=== PATIENT | female | born 1950 | race Caucasian/White ===

== ENCOUNTER → 2024-02-25 | Day surgery (SDC) | payer MEDICARE ==
[2024-02-17 10:48] LABS: BASOPHILS % 0.5 % (0.0-1.0); EOSINOPHILS # (AUTO) 0.4 (0.0-0.4); EOSINOPHILS % 5.2 % (0.0-6.0); HEMATOCRIT 42.6 % (34.2-44.1); HEMOGLOBIN 13.6 g/dL (12.0-16.0); LYMPHOCYTES # (AUTO) 1.6 (1.0-3.2); LYMPHOCYTES % 20.3 % (18.0-39.1); MEAN CORPUSCULAR HEMOGLOBIN 27.4 pg (28-32); MEAN CORPUSCULAR HGB CONC 31.9 g/dL (31-35); MEAN CORPUSCULAR VOLUME 85.9 fL (81-99); MONOCYTES # (AUTO) 0.8 (0.2-0.8); MONOCYTES % 9.4 % (4.4-11.3); NEUTROPHILS # (AUTO) 5.2 (2.1-6.9); NEUTROPHILS % 64.4 % (38.7-80.0); PLATELET COUNT 178 x10e3/uL (140-360); RED BLOOD COUNT 4.96 x10e6/uL (3.6-5.1); RED CELL DISTRIBUTION WIDTH 13.5 % (11.7-14.4); WHITE BLOOD COUNT 8.08 x10e3/uL (4.8-10.8)
[2024-02-17 11:26] LABS: ANION GAP 15.9 mmol/L (8-16); CREATININE, SERUM 0.88 mg/dL (0.57-1.11); POTASSIUM 3.9 mmol/L (3.5-5.1)
[~2024-02-25] MED LIST: ALLEGRA-D 24 H1 EACH PO; ATORVASTATIN CA10 MG PO; BALANCED SALT SOLN (OPTH) 15 ML BTL IO ONE; BUPIVACAINE HC 0.75% PF 10ML VIAL INJ ONE; CALCIUM PO; EPINEPHRINE HCL 1:1000 1ML 1 MG/ML AMP ONE; FIBER GUMMY PO; FLONASE ALLERG9.9 ML INH; LIDOCAINE 2% /EPINEPHRINE 20 ML SDV INJ ONE; LIDOCAINE HCL-PF 4% 40 MG/1 ML 5ML AMP ONE; LISINOPRIL-HCT1 EAC1 PO; MIDAZOLAM HCL 2 MG/2 ML VIAL ONE; MONTELUKAST SOD10 MG PO; MOUNJARO2.5 MG/0.5 SQ; NEOMYCIN/POLYMYXIN/DEX (OPTH) 3.5 GM TUBE ONE; PILOCARPINE HCL(OPTH) 15 ML LIQD ONE; POVIDONE IODINE 5% (OPTH) 30 ML BTL ONE; PROBIOTICS1 EACH PO; PROPOFOL IV EMULSION 10 MG/ML 20 ML VIAL ONE; TRELEGY ELLIPT1 EAC1 PO; VITAMIN C1000 MG PO; VITAMIN D350 MC1 PO; ZINC PO
[2024-02-25] MEDS: PHENYLEPHRINE HCL 2 ML DROPS ONE (06:31)
[2024-02-25] MEDS: CYCLOPENTOLATE HCL 2% OPTH SOLN 2 ML BTL OP ONE (06:31)
[2024-02-25] MEDS: GATIFLOXACIN(OPTH) 5 ML LIQD ONE (06:32)
[2024-02-25] MEDS: LACTATED RINGER'S 1,000 ML ONE (06:38)
[2024-02-25 08:07] VITALS: TEMP 97
[2024-02-25 08:20] VITALS: BP 132/74; PULSE 63; RESP 13; O2SAT 100
== END | disposition home or self-care (01) ==
LOC: OR 05:13
PROVIDERS: ATTEND Ophthalmology
DX: H25.11 Age-related nuclear cataract, right eye (principal); I10 Essential (primary) hypertension; E78.5 Hyperlipidemia, unspecified; J45.909 Unspecified asthma, uncomplicated; Z01.810 Encounter for preprocedural cardiovascular examination; Z01.812 Encounter for preprocedural laboratory examination; Z79.85 Long-term (current) use of injectable non-insulin antidiabetic drugs; Z79.899 Other long term (current) drug therapy
CPT/HCPCS: 36415; 66984; 80048; 85025; 93005; J0171; J2001; J2250; J2704; J7121